=== PATIENT | male | born 1955 | race Caucasian/White ===

== ENCOUNTER 2018-05-21 06:24 | Day surgery (SDC) | payer OTHER ==
[2018-05-21] MEDS ORDERED: LIDOCAINE 1% (MPF) 10 ML INJ ×2 (07:10)
[2018-05-21] MEDS ORDERED: FENTAnyl 50 MCG/ML VIAL (08:01)
[2018-05-21] MEDS ORDERED: PROPOFOL 40 ML (08:01)
[2018-05-21] MEDS ORDERED: LIDOCAINE 2% VISC 15 ML CUP TOP (08:30)
[2018-05-21] MEDS ORDERED: NEOSTIGMINE 10 MG INJ (08:46)
[2018-05-21] MEDS ORDERED: GLYCOPYRROLATE 0.4 MG INJ (08:47)
[2018-05-21] MEDS ORDERED: MIDAZOLAM 1 MG/ML 2 ML INJ IV (09:00)
[2018-05-21] MEDS ORDERED: METOCLOPRAMIDE 10 MG INJ IV (09:00)
[2018-05-21] MEDS ORDERED: MEPERIDINE 25 MG INJ IV (09:00)
[2018-05-21] MEDS ORDERED: HYDROmorphONE 1 MG/5 ML IV SYRINGE IV ×3 (09:00)
[2018-05-21] MEDS ORDERED: DIPHENHYDRAMINE 50 MG INJ (09:00)
[2018-05-21] MEDS ORDERED: EPHEDrine SULFATE 50 MG/5 ML SYG IV (09:00)
[2018-05-21] MEDS ORDERED: ONDANSETRON 4 MG INJ IV (09:00)
[2018-05-21] MEDS ORDERED: OXYCODONE/ACETAMINOPHEN (5/325) TAB PO ×2 (09:00)
[2018-05-21] MEDS ORDERED: ALBUTEROL 0.083% (NEB) 2.5 MG/3 ML AMP HHN (09:00)
[2018-05-21] MEDS ORDERED: FENTAnyl 50 MCG/ML VIAL IV ×3 (09:00)
[2018-05-21] MEDS ORDERED: LABETALOL HCL 20MG INJ IV (09:00)
[2018-05-21] MEDS ORDERED: hydrALAzine 20 MG INJ IV (09:00)
[2018-05-21] MEDS: DIPHENHYDRAMINE 50 MG INJ IV (09:13)
== END 2018-05-21 10:45 | disposition home or self-care (01) ==
LOC: SDS 06:24
DX: J98.4 Other disorders of lung (principal); I10 Essential (primary) hypertension
CPT/HCPCS: 31624; 88104; 88305; 88307